=== PATIENT | female | born 2000 | race Caucasian/White ===

== ENCOUNTER 2022-09-05 17:27 | Emergency (ER) | payer MEDICAID ==
[2022-09-05] MEDS ORDERED: Sodium Chloride 0.9% 1000 ML 1,000 ML IV STA ×2 (17:53→19:08)
[2022-09-05] MEDS ORDERED: Zofran 4 MG/2 ML VIAL IV ONE (17:55)
[2022-09-05 18:01] LABS: Absolute Neutrophil Ct (ANC) 8.08 x10^3/uL (1.4-6.9); Basophil (Absolute #) 0.05 x10^3/uL (0-0.4); Eosinophil % 3.1 % (0.00-5.0); Eosinophil (Absolute #) 0.36 x10^3/uL (0-0.5); Hematocrit 41.8 % (35-47); Hemoglobin 13.6 g/dL (12.0-16.0); Lymphocyte (Absolute #) 2.62 x10^3/uL (1.0-4.6); Lymphocytes % 22.5 % (24.0-44.0); Mean Cell Volume 93.5 fL (78-100); Mean Corpuscular Hemoglobin 30.4 pg (26-32); Mean Corpuscular Hgb Concent. 32.5 g/dL (32-36); Mean Platelet Volume 10.9 fL (7.5-11.0); Monocytes % 4.3 % (0.0-12.0); Neutrophil % 69.4 % (36.0-66.0); Platelet Count 316 x10^3/uL (150-450); Red Blood Count 4.47 x10^6/uL (4.1-5.4); Red Cell Distribution Width 11.7 % (11.5-14.0); White Blood Count 11.7 x10^3/uL (4.0-10.5)
[2022-09-05] MEDS ORDERED: Sodium Chloride 0.9% 1000 ML 1,000 ML ONE ×2 (18:08→19:18)
[2022-09-05] MEDS ORDERED: Zofran 4 MG/2 ML VIAL ONE (18:08)
[2022-09-05 18:17] LABS: Appearance CLEAR (CLEAR); Bilirubin NEGATIVE (NEGATIVE); Dipstick done @ ? MAIN LAB; Glucose >=1000 mg/dL (NEGATIVE); Ketones MODERATE-40 (NEGATIVE); Nitrite NEGATIVE (NEGATIVE); Ph 5.5 (5-6); Protein,Urine Dip NEGATIVE (Negative); RBC NEGATIVE Ery/ul (0-5); Specific Gravity 1.015 (1.005-1.025); Urobilinogen 0.2 mg/dL (0-1)
[2022-09-05 18:17] LABS: ALBUMIN 4.6 g/dL (3.5-5.0); ALKALINE PHOSPHATASE 146 U/L (38-126); AMYLASE 48 U/L (30-110); ANION GAP 12.4 MEQ/L (5-15); BLOOD UREA NITROGEN 14 mg/dL (7-17); CHLORIDE 101 mmol/L (98-107); Calcium 8.7 mg/dL (8.4-10.2); Carbon Dioxide 25 mmol/L (22-30); Creatinine 1 0.72 mg/dL (0.52-1.04); EST GLOMERULAR FILTRATION RATE > 60.0 ML/MIN; Glucose 395 mg/dL (74-106); LIPASE 21 U/L (23-300); Potassium 4.3 mmol/L (3.5-5.1); SGOT/AST 29 U/L (14-36); SGPT/ALT 24 U/L (0-35); SODIUM 134 mmol/L (137-145); Total Protein 7.7 g/dL (6.3-8.2)
[2022-09-05 18:21] LABS: Epithelial Cells RARE /HPF (FEW); WBC 0-2 /HPF (0-5)
[2022-09-05 18:25] LABS: Urine Cultured Indicated? NO
--- NOTE | 2022-09-05 18:50 | ERPHSYRPT ---
- History of Present Illness Source: patient Exam Limitations: other (Poor historian) Patient Subjective Stated Complaint: hyperglycemia and NV x 4 hours Triage Nursing Assessment: pt to ED c/o hyperglycemia and NV x 4 hours. reports she took off omnipod and forgot to replace it for 3 hours. when she checked her BS at 1700 it read HI on her monitor. emesis x2. rates abd pain 08/29. ambulatory, A&Ox4, urinated on arrival to ED, playing on phone through assessment. Physician History: 22 yo wf w DM1 presents w N/V x 4 hours w elevated glucose. Pt has had her insulin pump disconnected x 4 hours before coming to the ER. She has chronic, generalized abdominal pain which is mild at present. Pt denies diarrhea/dysuria/hematuria/fever/cough/coryza. She connected her insulin pump when she arrived to the ER. Timing/Duration: hour(s) (4hours) Severity: moderate Modifying Factors: Improves With: nothing Associated Symptoms: denies symptoms, nausea, vomiting, abdominal pain Allergies/Adverse Reactions: No Known Drug Allergies Allergy (Unverified 09/05/22 17:34) Home Medications: Insulin Pump Cart,Cont Inf,Bt [Omnipod Dash Pods (Gen 4)] 1 cartridge .ROUTE UD 09/05/22 [History] Ondansetron ODT 4 MG [Zofran Odt 4 mg] 4 mg PO DAILY PRN PRN 09/05/22 [History] Pnv No.133/Ferrous Fum/Folic [Sv Vitamins Tablet] 1 tab PO DAILY 09/05/22 [History] Hx Tetanus, Diphtheria Vaccination/Date Given: Yes Hx Influenza Vaccination/Date Given: No Immunizations Up to Date: Yes Travel Risk - International Travel Have you traveled outside of the country in past 3 weeks: No - Coronavirus Screening Are you exhibiting any of the following symptoms?: Yes Symptoms: Vomiting/Diarrhea Close contact with a COVID-19 positive Pt in past 14-21 Days: No - Vaccine Status Have you recieved a Covid-19 vaccination: No - Review of Systems Constitutional: No Symptoms Eyes: No Symptoms Ears, Nose, & Throat: No Symptoms Respiratory: No Symptoms Cardiac: No Symptoms Abdominal/Gastrointestinal: No Symptoms, Abdominal Pain, Nausea, Vomiting Genitourinary Symptoms: No Symptoms Musculoskeletal: No Symptoms Skin: No Symptoms Neurological: No Symptoms Psychological: No Symptoms Endocrine: No Symptoms Hematologic/Lymphatic: No Symptoms Immunological/Allergic: No Symptoms - Past Medical History Pertinent Past Medical History: Yes Endocrine Medical History: Diabetes Type I - Past Surgical History Past Surgical History: Yes Genitourinary: Kidney Surgery, Other Other Surgical History: kidney stone removal - Social History Smoking Status: Never smoker Exposure to second hand smoke: No Drug Use: none Patient Lives Alone: No Significant Family History: no pertinent family hx - Female History Hx Last Menstrual Period: 7 years Hx Now: No (unknown) - Nursing Vital Signs Nursing Vital Signs: Initial Vital Signs Temperature 97.9 F 09/05/22 17:40 Pulse Rate 108 H 09/05/22 17:40 Respiratory Rate 18 09/05/22 17:40 Blood Pressure 110/74 09/05/22 17:40 O2 Sat by Pulse Oximetry 97 09/05/22 17:40 Pain Scale Pain Intensity 5 Mildly tachy - Physical Exam General Appearance: no apparent distress Eye Exam: PERRL/EOMI, eyes nml inspection Ears, Nose, Throat Exam: normal ENT inspection, TMs normal, pharynx normal, moist mucous membranes Neck Exam: normal inspection, non-tender, supple, full range of motion, No meningismus, No mass, No Brudzinski, No Kernig's Respiratory Exam: normal breath sounds, lungs clear, airway intact Cardiovascular Exam: tachycardia (Mild), No murmur Gastrointestinal/Abdomen Exam: soft, normal bowel sounds, tenderness (Mild griffin- umbilical TTP wo guarding or rebound) Back Exam: normal inspection, normal range of motion, No CVA tenderness, No vertebral tenderness Extremity Exam: normal inspection, normal range of motion Neurologic Exam: alert, oriented x 3, cooperative, real estate administrative assistant II-XII nml as tested, normal mood/affect, sensation nml Skin Exam: normal color, warm, dry Lymphatic Exam: No adenopathy SpO2 Interpretation: normal SpO2: 98 O2 Delivery: Room Air - Course Nursing assessment & vital signs reviewed: Yes Ordered Tests: Active Orders 24 hr Category Date Time Status IV Insertion STAT Care 09/05/22 17:48 Completed POCT Glucose Check STAT Care 09/05/22 17:48 Completed AMYLASE Stat Lab 09/05/22 17:45 Completed CBC W DIFF Stat Lab 09/05/22 17:45 Completed CMP Stat Lab 09/05/22 17:45 Completed HCG,QUALITATIVE URINE Stat Lab 09/05/22 17:53 Completed LIPASE Stat Lab 09/05/22 17:45 Completed POCT GLUCOSE Stat Lab 09/05/22 17:46 Completed POCT GLUCOSE Stat Lab 09/05/22 19:11 Completed POCT GLUCOSE Stat Lab 09/05/22 20:12 Completed UA W/RFX CULTURE Stat Lab 09/05/22 17:53 Completed Medication Summary Discontinued Medications Generic Name Dose Route Start Last Admin Trade Name Anton PRN Reason Stop Dose Admin Sodium Chloride 1,000 mls @ 999 mls/hr 09/05/22 17:53 09/05/22 19:09 Sodium Chloride 0.9% 1000 Ml IV 09/05/22 18:53 Infused .Q1H1M STA Infusion Sodium Chloride Confirm 09/05/22 18:08 Sodium Chloride 0.9% 1000 Ml Administered 09/05/22 18:09 Dose 1,000 mls @ ud .ROUTE .STK-MED ONE Sodium Chloride 1,000 mls @ 999 mls/hr 09/05/22 19:08 09/05/22 20:20 Sodium Chloride 0.9% 1000 Ml IV 09/05/22 20:08 Infused .Q1H1M STA Infusion Sodium Chloride Confirm 09/05/22 19:18 Sodium Chloride 0.9% 1000 Ml Administered 09/05/22 19:19 Dose 1,000 mls @ ud .ROUTE .STK-MED ONE Insulin Human Lispro 10 unit 09/05/22 19:17 09/05/22 19:20 Insulin Lispro 1 Unit SQ 09/05/22 19:18 10 unit STAT ONE Administration Insulin Human Lispro Confirm 09/05/22 19:18 Insulin Lispro 1 Unit Administered 09/05/22 19:19 Dose 10 unit .ROUTE .STK-MED ONE Ketorolac Tromethamine 15 mg 09/05/22 19:16 09/05/22 19:20 Ketorolac Tromethamine 30 Mg/Ml Inj IV 09/05/22 19:17 15 mg STAT ONE Administration Ketorolac Tromethamine Confirm 09/05/22 19:18 Ketorolac Tromethamine 30 Mg/Ml Inj Administered 09/05/22 19:19 Dose 30 mg .ROUTE .STK-MED ONE Ondansetron HCl 4 mg 09/05/22 17:55 09/05/22 18:09 Ondansetron Hcl 4 Mg/2 Ml Vial IV 09/05/22 17:56 4 mg STAT ONE Administration Ondansetron HCl Confirm 09/05/22 18:08 Ondansetron Hcl 4 Mg/2 Ml Vial Administered 09/05/22 18:09 Dose 4 mg .ROUTE .STK-MED ONE Lab/Rad Data: Laboratory Result Diagrams 09/05/22 17:45 09/05/22 17:45 Laboratory Results 09/05/22 09/05/22 09/05/22 Range/Units 20:12 19:11 17:53 WBC (4.0-10.5) x10^3/uL RBC (4.1-5.4) x10^6/uL Hgb (12.0-16.0) g/dL Hct (35-47) % MCV (78-100) fL MCH (26-32) pg MCHC (32-36) g/dL RDW (11.5-14.0) % Plt Count (150-450) x10^3/uL MPV (7.5-11.0) fL Gran % (36.0-66.0) % Immature Gran % (Auto) (0.00-0.4) % Nucleat RBC Rel Count (0.00-0.1) % Eos # (Auto) (0-0.5) x10^3/uL Immature Gran # (Auto) (0.00-0.03) x10^3u/L Absolute Lymphs (auto) (1.0-4.6) x10^3/uL Absolute Monos (auto) (0.0-1.3) x10^3/uL Absolute Nucleated RBC (0.00-0.01) x10^3u/L Lymphocytes % (24.0-44.0) % Monocytes % (0.0-12.0) % Eosinophils % (0.00-5.0) % Basophils % (0.0-0.4) % Absolute Granulocytes (1.4-6.9) x10^3/uL Basophils # (0-0.4) x10^3/uL Sodium (137-145) mmol/L Potassium (3.5-5.1) mmol/L Chloride (98-107) mmol/L Carbon Dioxide (22-30) mmol/L Anion Gap (5-15) MEQ/L BUN (7-17) mg/dL Creatinine (0.52-1.04) mg/dL Estimated GFR ML/MIN Glucose (74-106) mg/dL POC Glucometer 277 H 341 H (74 to 106) mg/dL Calcium (8.4-10.2) mg/dL Total Bilirubin (0.2-1.3) mg/dL AST (14-36) U/L ALT (0-35) U/L Alkaline Phosphatase (38-126) U/L Serum Total Protein (6.3-8.2) g/dL Albumin (3.5-5.0) g/dL Amylase (30-110) U/L Lipase (23-300) U/L Urinalys Dipstick Clnc MAIN LAB Urine Color YELLOW (YELLOW) Urine Appearance CLEAR (CLEAR) Urine pH 5.5 (5-6) Ur Specific [place] 1.015 (1.005-1.025) POC Urine Protein Conf NEGATIVE (Negative) Urine Ketones MODERATE-40 (NEGATIVE) Urine Nitrite NEGATIVE (NEGATIVE) Urine Bilirubin NEGATIVE (NEGATIVE) Urine Urobilinogen 0.2 (0-1) mg/dL Urine Leukocytes NEGATIVE (NEGATIVE) Urine WBC (Auto) 0-2 (0-5) /HPF Urine RBC (Auto) NONE (0-2) /HPF U Epithel Cells (Auto) RARE (FEW) /HPF Urine Bacteria (Auto) NONE (NEGATIVE) /HPF Urine RBC NEGATIVE (0-5) Jackson/ul Ur Culture Indicated? NO Urine Glucose >=1000 (NEGATIVE) mg/dL Urine HCG, Qual (Negative) 09/05/22 09/05/22 09/05/22 Range/Units 17:53 17:46 17:45 WBC (4.0-10.5) x10^3/uL RBC (4.1-5.4) x10^6/uL Hgb (12.0-16.0) g/dL Hct (35-47) % MCV (78-100) fL MCH (26-32) pg MCHC (32-36) g/dL RDW (11.5-14.0) % Plt Count (150-450) x10^3/uL MPV (7.5-11.0) fL Gran % (36.0-66.0) % Immature Gran % (Auto) (0.00-0.4) % Nucleat RBC Rel Count (0.00-0.1) % Eos # (Auto) (0-0.5) x10^3/uL Immature Gran # (Auto) (0.00-0.03) x10^3u/L Absolute Lymphs (auto) (1.0-4.6) x10^3/uL Absolute Monos (auto) (0.0-1.3) x10^3/uL Absolute Nucleated RBC (0.00-0.01) x10^3u/L Lymphocytes % (24.0-44.0) % Monocytes % (0.0-12.0) % Eosinophils % (0.00-5.0) % Basophils % (0.0-0.4) % Absolute Granulocytes (1.4-6.9) x10^3/uL Basophils # (0-0.4) x10^3/uL Sodium 134 L (137-145) mmol/L Potassium 4.3 (3.5-5.1) mmol/L Chloride 101 (98-107) mmol/L Carbon Dioxide 25 (22-30) mmol/L Anion Gap 12.4 (5-15) MEQ/L BUN 14 (7-17) mg/dL Creatinine 0.72 (0.52-1.04) mg/dL Estimated GFR > 60.0 ML/MIN Glucose 395 H (74-106) mg/dL POC Glucometer 384 H (74 to 106) mg/dL Calcium 8.7 (8.4-10.2) mg/dL Total Bilirubin 0.80 (0.2-1.3) mg/dL AST 29 (14-36) U/L ALT 24 (0-35) U/L Alkaline Phosphatase 146 H (38-126) U/L Serum Total Protein 7.7 (6.3-8.2) g/dL Albumin 4.6 (3.5-5.0) g/dL Amylase 48 (30-110) U/L Lipase 21 L (23-300) U/L Urinalys Dipstick Clnc Urine Color (YELLOW) Urine Appearance (CLEAR) Urine pH (5-6) Ur Specific [place] (1.005-1.025) POC Urine Protein Conf (Negative) Urine Ketones (NEGATIVE) Urine Nitrite (NEGATIVE) Urine Bilirubin (NEGATIVE) Urine Urobilinogen (0-1) mg/dL Urine Leukocytes (NEGATIVE) Urine WBC (Auto) (0-5) /HPF Urine RBC (Auto) (0-2) /HPF U Epithel Cells (Auto) (FEW) /HPF Urine Bacteria (Auto) (NEGATIVE) /HPF Urine RBC (0-5) Jackson/ul Ur Culture Indicated? Urine Glucose (NEGATIVE) mg/dL Urine HCG, Qual NEGATIVE (Negative) 09/05/22 Range/Units 17:45 WBC 11.7 H (4.0-10.5) x10^3/uL RBC 4.47 (4.1-5.4) x10^6/uL Hgb 13.6 (12.0-16.0) g/dL Hct 41.8 (35-47) % MCV 93.5 (78-100) fL MCH 30.4 (26-32) pg MCHC 32.5 (32-36) g/dL RDW 11.7 (11.5-14.0) % Plt Count 316 (150-450) x10^3/uL MPV 10.9 (7.5-11.0) fL Gran % 69.4 H (36.0-66.0) % Immature Gran % (Auto) 0.3 (0.00-0.4) % Nucleat RBC Rel Count 0.0 (0.00-0.1) % Eos # (Auto) 0.36 (0-0.5) x10^3/uL Immature Gran # (Auto) 0.04 H (0.00-0.03) x10^3u/L Absolute Lymphs (auto) 2.62 (1.0-4.6) x10^3/uL Absolute Monos (auto) 0.50 (0.0-1.3) x10^3/uL Absolute Nucleated RBC 0.00 (0.00-0.01) x10^3u/L Lymphocytes % 22.5 L (24.0-44.0) % Monocytes % 4.3 (0.0-12.0) % Eosinophils % 3.1 (0.00-5.0) % Basophils % 0.4 (0.0-0.4) % Absolute Granulocytes 8.08 H (1.4-6.9) x10^3/uL Basophils # 0.05 (0-0.4) x10^3/uL Sodium (137-145) mmol/L Potassium (3.5-5.1) mmol/L Chloride (98-107) mmol/L Carbon Dioxide (22-30) mmol/L Anion Gap (5-15) MEQ/L BUN (7-17) mg/dL Creatinine (0.52-1.04) mg/dL Estimated GFR ML/MIN Glucose (74-106) mg/dL POC Glucometer (74 to 106) mg/dL Calcium (8.4-10.2) mg/dL Total Bilirubin (0.2-1.3) mg/dL AST (14-36) U/L ALT (0-35) U/L Alkaline Phosphatase (38-126) U/L Serum Total Protein (6.3-8.2) g/dL Albumin (3.5-5.0) g/dL Amylase (30-110) U/L Lipase (23-300) U/L Urinalys Dipstick Clnc Urine Color (YELLOW) Urine Appearance (CLEAR) Urine pH (5-6) Ur Specific [place] (1.005-1.025) POC Urine Protein Conf (Negative) Urine Ketones (NEGATIVE) Urine Nitrite (NEGATIVE) Urine Bilirubin (NEGATIVE) Urine Urobilinogen (0-1) mg/dL Urine Leukocytes (NEGATIVE) Urine WBC (Auto) (0-5) /HPF Urine RBC (Auto) (0-2) /HPF U Epithel Cells (Auto) (FEW) /HPF Urine Bacteria (Auto) (NEGATIVE) /HPF Urine RBC (0-5) Jackson/ul Ur Culture Indicated? Urine Glucose (NEGATIVE) mg/dL Urine HCG, Qual (Negative) - Progress Progress: improved Progress Note: 09/05/22 20:19 2L NS bolus 10units sq Humalog 09/05/22 20:20 4mg IV Zofran 15mg IV Toradol 09/05/22 20:21 Pt w hyperglycemia wo anion gap. Much improved after treatment Counseled pt/family regarding: lab results, diagnosis, need for follow-up - Departure Departure Disposition: Home Clinical Impression: Hyperglycemia Condition: Stable Critical Care Time: No Referrals: DESTINY BOWEN [Primary Care Provider] - Follow up/PCP as directed Instructions: High Blood Sugar, Adult (DC) Additional Instructions: Continue with current insulin treatment Follow up with your family MD in AM Return to ER for increasing pain or temperature greater than 100.5
[2022-09-05 19:14] VITALS: BP 124/69
[2022-09-05] MEDS ORDERED: TORAdol 30 mg Injection IV ONE (19:16)
[2022-09-05] MEDS ORDERED: HUMALOG SQ ONE (19:17)
[2022-09-05] MEDS ORDERED: HUMALOG ONE (19:18)
[2022-09-05] MEDS ORDERED: TORAdol 30 mg Injection ONE (19:18)
[2022-09-05 20:14] VITALS: PULSE 84
[2022-09-05 20:22] VITALS: O2SAT 98
== END 2022-09-05 20:29 | disposition home or self-care (01) ==
LOC: ED 17:27
DX: E10.65 Type 1 diabetes mellitus with hyperglycemia (principal); Z79.4 Long term (current) use of insulin; Z96.41 Presence of insulin pump (external) (internal); Z28.310 Unvaccinated for COVID-19
CPT/HCPCS: 36000; 36415; 80053; 81015; 81025; 82150; 82947; 83690; 85025; 96372; 96374; 96375; 99284; J1817; J1885; J2405

== ENCOUNTER 2022-09-12 15:55 | Emergency (ER) | payer MEDICAID ==
--- NOTE | 2022-09-12 15:57 | ERPHSYRPT ---
- History of Present Illness Time Seen by Provider: 09/12/22 15:57 Source: patient Exam Limitations: no limitations Physician History: This is an insulin-dependent diabetic diabetic who was concerned that her blood sugar was low. She did not check her blood sugar but "knows when it is low". Because of the low blood sugar she thought she had patient ate a large amount of ice cream and then presented to the emergency department. Her blood sugar on arrival to emergency department is 189. Patient states she has not been feeling well for the past several days. She did get diabetic scan unit working just while we were evaluating her in the emergency department. Before she could get a value it would take 60 minutes of recalibrating. Patient denies shortness of breath. She denies chest pain. She has no abdominal pain. Timing/Duration: today Severity: mild Associated Symptoms: denies symptoms Allergies/Adverse Reactions: No Known Drug Allergies Allergy (Verified 09/12/22 16:05) Home Medications: Insulin Pump Cart,Cont Inf,Bt [Omnipod Dash Pods (Gen 4)] 1 cartridge .ROUTE UD 09/05/22 [History] Hx Tetanus, Diphtheria Vaccination/Date Given: Yes Hx Influenza Vaccination/Date Given: No Travel Risk - International Travel Have you traveled outside of the country in past 3 weeks: No - Coronavirus Screening Are you exhibiting any of the following symptoms?: Yes Symptoms: Headaches/Body Aches/Fatigue - Vaccine Status Have you recieved a Covid-19 vaccination: No - Review of Systems Constitutional: No Symptoms Eyes: No Symptoms Ears, Nose, & Throat: No Symptoms Respiratory: No Symptoms Cardiac: No Symptoms Abdominal/Gastrointestinal: Nausea Genitourinary Symptoms: No Symptoms Musculoskeletal: No Symptoms Skin: No Symptoms Neurological: Headache Psychological: No Symptoms Endocrine: No Symptoms Hematologic/Lymphatic: No Symptoms Immunological/Allergic: No Symptoms All Other Systems: Reviewed and Negative - Past Medical History Pertinent Past Medical History: Yes Endocrine Medical History: Diabetes Type I - Past Surgical History Past Surgical History: Yes Genitourinary: Kidney Surgery, Other Other Surgical History: kidney stone removal - Social History Smoking Status: Never smoker Exposure to second hand smoke: No Drug Use: none Patient Lives Alone: No Significant Family History: no pertinent family hx - Nursing Vital Signs Nursing Vital Signs: Initial Vital Signs Temperature 97.7 F 09/12/22 16:06 Pulse Rate 92 H 09/12/22 16:06 Respiratory Rate 15 09/12/22 16:06 Blood Pressure 98/74 09/12/22 16:06 O2 Sat by Pulse Oximetry 99 09/12/22 16:06 Pain Scale Pain Intensity 0 - Physical Exam General Appearance: no apparent distress, alert, anxiety Eye Exam: PERRL/EOMI, eyes nml inspection Ears, Nose, Throat Exam: normal ENT inspection, moist mucous membranes Neck Exam: normal inspection, non-tender, supple, full range of motion Respiratory Exam: normal breath sounds, lungs clear, airway intact, No chest tenderness, No respiratory distress Cardiovascular Exam: regular rate/rhythm, normal heart sounds, normal peripheral pulses Gastrointestinal/Abdomen Exam: soft, normal bowel sounds, No tenderness Pelvic Exam: not done Rectal Exam: not done Back Exam: normal inspection, normal range of motion, No CVA tenderness, No vertebral tenderness Extremity Exam: normal inspection, normal range of motion, pelvis stable Neurologic Exam: alert, oriented x 3, cooperative, dramatic teacher II-XII nml as tested, normal mood/affect, nml cerebellar function, nml station & gait, sensation nml Skin Exam: normal color, warm, dry Lymphatic Exam: No adenopathy SpO2 Interpretation: normal O2 Delivery: Room Air - Course Nursing assessment & vital signs reviewed: Yes Ordered Tests: Active Orders 24 hr Category Date Time Status CBC W DIFF Stat Lab 09/12/22 16:35 Completed CMP Stat Lab 09/12/22 16:35 Completed HCG,QUALITATIVE URINE Stat Lab 09/12/22 16:33 Completed POCT GLUCOSE Stat Lab 09/12/22 16:03 Completed UA W/RFX CULTURE Stat Lab 09/12/22 16:33 Completed Urine Triage Profile Stat Lab 09/12/22 16:33 Received Lab/Rad Data: Laboratory Result Diagrams 09/12/22 16:35 09/12/22 16:35 Laboratory Results 09/12/22 09/12/22 09/12/22 Range/Units 17:33 16:35 16:35 WBC 11.2 H (4.0-10.5) x10^3/uL RBC 4.57 (4.1-5.4) x10^6/uL Hgb 14.0 (12.0-16.0) g/dL Hct 43.4 (35-47) % MCV 95.0 (78-100) fL MCH 30.6 (26-32) pg MCHC 32.3 (32-36) g/dL RDW 11.6 (11.5-14.0) % Plt Count 267 (150-450) x10^3/uL MPV 11.0 (7.5-11.0) fL Gran % 79.0 H (36.0-66.0) % Immature Gran % (Auto) 0.4 (0.00-0.4) % Nucleat RBC Rel Count 0.0 (0.00-0.1) % Eos # (Auto) 0.29 (0-0.5) x10^3/uL Immature Gran # (Auto) 0.04 H (0.00-0.03) x10^3u/L Absolute Lymphs (auto) 1.44 (1.0-4.6) x10^3/uL Absolute Monos (auto) 0.54 (0.0-1.3) x10^3/uL Absolute Nucleated RBC 0.00 (0.00-0.01) x10^3u/L Lymphocytes % 12.9 L (24.0-44.0) % Monocytes % 4.8 (0.0-12.0) % Eosinophils % 2.6 (0.00-5.0) % Basophils % 0.3 (0.0-0.4) % Absolute Granulocytes 8.81 H (1.4-6.9) x10^3/uL Basophils # 0.03 (0-0.4) x10^3/uL Sodium 136 L (137-145) mmol/L Potassium 4.3 (3.5-5.1) mmol/L Chloride 105 (98-107) mmol/L Carbon Dioxide 26 (22-30) mmol/L Anion Gap 9.1 (5-15) MEQ/L BUN 14 (7-17) mg/dL Creatinine 0.66 (0.52-1.04) mg/dL Estimated GFR > 60.0 ML/MIN Glucose 239 H (74-106) mg/dL POC Glucometer (74 to 106) mg/dL Calcium 8.7 (8.4-10.2) mg/dL Total Bilirubin 0.60 (0.2-1.3) mg/dL AST 23 (14-36) U/L ALT 18 (0-35) U/L Alkaline Phosphatase 143 H (38-126) U/L Serum Total Protein 7.4 (6.3-8.2) g/dL Albumin 4.3 (3.5-5.0) g/dL Urinalys Dipstick Clnc Urine Color (YELLOW) Urine Appearance (CLEAR) Urine pH (5-6) Ur Specific [place] (1.005-1.025) POC Urine Protein Conf (Negative) Urine Ketones (NEGATIVE) Urine Nitrite (NEGATIVE) Urine Bilirubin (NEGATIVE) Urine Urobilinogen (0-1) mg/dL Urine Leukocytes (NEGATIVE) Urine WBC (Auto) (0-5) /HPF Urine RBC (Auto) (0-2) /HPF U Epithel Cells (Auto) (FEW) /HPF Urine Bacteria (Auto) (NEGATIVE) /HPF Urine RBC (0-5) Jackson/ul Ur Culture Indicated? Urine Glucose (NEGATIVE) mg/dL Urine HCG, Qual (Negative) Influenza Type A Ag NEGATIVE (NEGATIVE) Influenza Type B Ag NEGATIVE (NEGATIVE) RSV (PCR) NEGATIVE (Negative) SARS-CoV-2 (PCR) NEGATIVE (NEGATIVE) 09/12/22 09/12/22 09/12/22 Range/Units 16:33 16:33 16:03 WBC (4.0-10.5) x10^3/uL RBC (4.1-5.4) x10^6/uL Hgb (12.0-16.0) g/dL Hct (35-47) % MCV (78-100) fL MCH (26-32) pg MCHC (32-36) g/dL RDW (11.5-14.0) % Plt Count (150-450) x10^3/uL MPV (7.5-11.0) fL Gran % (36.0-66.0) % Immature Gran % (Auto) (0.00-0.4) % Nucleat RBC Rel Count (0.00-0.1) % Eos # (Auto) (0-0.5) x10^3/uL Immature Gran # (Auto) (0.00-0.03) x10^3u/L Absolute Lymphs (auto) (1.0-4.6) x10^3/uL Absolute Monos (auto) (0.0-1.3) x10^3/uL Absolute Nucleated RBC (0.00-0.01) x10^3u/L Lymphocytes % (24.0-44.0) % Monocytes % (0.0-12.0) % Eosinophils % (0.00-5.0) % Basophils % (0.0-0.4) % Absolute Granulocytes (1.4-6.9) x10^3/uL Basophils # (0-0.4) x10^3/uL Sodium (137-145) mmol/L Potassium (3.5-5.1) mmol/L Chloride (98-107) mmol/L Carbon Dioxide (22-30) mmol/L Anion Gap (5-15) MEQ/L BUN (7-17) mg/dL Creatinine (0.52-1.04) mg/dL Estimated GFR ML/MIN Glucose (74-106) mg/dL POC Glucometer 189 H (74 to 106) mg/dL Calcium (8.4-10.2) mg/dL Total Bilirubin (0.2-1.3) mg/dL AST (14-36) U/L ALT (0-35) U/L Alkaline Phosphatase (38-126) U/L Serum Total Protein (6.3-8.2) g/dL Albumin (3.5-5.0) g/dL Urinalys Dipstick Clnc MAIN LAB Urine Color YELLOW (YELLOW) Urine Appearance CLEAR (CLEAR) Urine pH 6.5 (5-6) Ur Specific [place] 1.020 (1.005-1.025) POC Urine Protein Conf NEGATIVE (Negative) Urine Ketones NEGATIVE (NEGATIVE) Urine Nitrite NEGATIVE (NEGATIVE) Urine Bilirubin NEGATIVE (NEGATIVE) Urine Urobilinogen 0.2 (0-1) mg/dL Urine Leukocytes NEGATIVE (NEGATIVE) Urine WBC (Auto) 0-2 (0-5) /HPF Urine RBC (Auto) NONE (0-2) /HPF U Epithel Cells (Auto) RARE (FEW) /HPF Urine Bacteria (Auto) NONE (NEGATIVE) /HPF Urine RBC NEGATIVE (0-5) Jackson/ul Ur Culture Indicated? NO Urine Glucose >=1000 (NEGATIVE) mg/dL Urine HCG, Qual NEGATIVE (Negative) Influenza Type A Ag (NEGATIVE) Influenza Type B Ag (NEGATIVE) RSV (PCR) (Negative) SARS-CoV-2 (PCR) (NEGATIVE) - Departure Departure Disposition: Home Clinical Impression: Hyperglycemia Condition: Stable Critical Care Time: No Referrals: DESTINY BOWEN [Primary Care Provider] - Follow up/PCP as directed Additional Instructions: Monitor your blood sugar closely. Base your blood sugar treatment on actual values and not what you think they might be. Follow-up with your primary care physician for further evaluation management.
[2022-09-12 16:19] VITALS: BP 98/74
[2022-09-12 16:40] LABS: Absolute Neutrophil Ct (ANC) 8.81 x10^3/uL (1.4-6.9); Basophil (Absolute #) 0.03 x10^3/uL (0-0.4); Eosinophil % 2.6 % (0.00-5.0); Eosinophil (Absolute #) 0.29 x10^3/uL (0-0.5); Hematocrit 43.4 % (35-47); Lymphocyte (Absolute #) 1.44 x10^3/uL (1.0-4.6); Lymphocytes % 12.9 % (24.0-44.0); Mean Corpuscular Hemoglobin 30.6 pg (26-32); Mean Corpuscular Hgb Concent. 32.3 g/dL (32-36); Monocyte (Absolute #) 0.54 x10^3/uL (0.0-1.3); Monocytes % 4.8 % (0.0-12.0); Platelet Count 267 x10^3/uL (150-450); Red Blood Count 4.57 x10^6/uL (4.1-5.4); Red Cell Distribution Width 11.6 % (11.5-14.0); White Blood Count 11.2 x10^3/uL (4.0-10.5)
[2022-09-12 16:54] LABS: Appearance CLEAR (CLEAR); Bilirubin NEGATIVE (NEGATIVE); Dipstick done @ ? MAIN LAB; Glucose >=1000 mg/dL (NEGATIVE); Ketones NEGATIVE (NEGATIVE); Nitrite NEGATIVE (NEGATIVE); Ph 6.5 (5-6); Protein,Urine Dip NEGATIVE (Negative); RBC NEGATIVE Ery/ul (0-5); Urobilinogen 0.2 mg/dL (0-1)
[2022-09-12 16:58] LABS: ALBUMIN 4.3 g/dL (3.5-5.0); ALKALINE PHOSPHATASE 143 U/L (38-126); ANION GAP 9.1 MEQ/L (5-15); BLOOD UREA NITROGEN 14 mg/dL (7-17); CHLORIDE 105 mmol/L (98-107); Calcium 8.7 mg/dL (8.4-10.2); Carbon Dioxide 26 mmol/L (22-30); Creatinine 1 0.66 mg/dL (0.52-1.04); EST GLOMERULAR FILTRATION RATE > 60.0 ML/MIN; Glucose 239 mg/dL (74-106); Potassium 4.3 mmol/L (3.5-5.1); SGOT/AST 23 U/L (14-36); SGPT/ALT 18 U/L (0-35); SODIUM 136 mmol/L (137-145); Total Protein 7.4 g/dL (6.3-8.2)
[2022-09-12 17:16] LABS: Epithelial Cells RARE /HPF (FEW); WBC 0-2 /HPF (0-5)
[2022-09-12 17:20] LABS: Urine Cultured Indicated? NO
[2022-09-12 18:21] LABS: INFLUENZA A NEGATIVE (NEGATIVE); INFLUENZA B NEGATIVE (NEGATIVE); RESPIRATORY SYNCTIAL VIRUS NEGATIVE (Negative); SARS-CoV-2 Xpert Express NEGATIVE (NEGATIVE)
[2022-09-12 19:24] VITALS: PULSE 77; O2SAT 96
[2022-09-12 19:28] LABS: Amphetamine,Urine NEGATIVE (NEGATIVE); Barbiturate,Urine NEGATIVE (NEGATIVE); Benzodiazepine,Urine NEGATIVE (NEGATIVE); Cocaine,Urine NEGATIVE (NEGATIVE); Methadone,Urine NEGATIVE (NEGATIVE); Opiate,Urine NEGATIVE (NEGATIVE); PCP,Urine NEGATIVE (NEGATIVE); THC,Urine NEGATIVE (NEGATIVE)
== END 2022-09-12 19:26 | disposition home or self-care (01) ==
LOC: ED 15:55
DX: E10.65 Type 1 diabetes mellitus with hyperglycemia (principal); Z79.4 Long term (current) use of insulin; Z96.41 Presence of insulin pump (external) (internal); Z28.310 Unvaccinated for COVID-19
CPT/HCPCS: 0241U; 36415; 80053; 80307; 81015; 81025; 82947; 85025; 99282

== ENCOUNTER 2023-03-28 22:32 | Emergency (ER) | payer MEDICAID ==
[2023-03-28 22:42] VITALS: O2SAT 98
--- NOTE | 2023-03-28 22:54 | ERPHSYRPT ---
- History of Present Illness Time Seen by Provider: 03/28/23 22:53 Source: patient Exam Limitations: no limitations Physician History: Patient a 22-year-old female currently history of diabetes presents to our ED with an ingrown toenail. Symptoms have been getting progressively worse over the past week. No trauma. No fever. No nausea vomiting or diaphoresis. Pain is described as an ache that is localized. No radiation. Pain worse with palpation to the involved area. Pain improved with rest. Significant other at bedside. They voiced no other complaints or concerns at this time. Portions of this note were created with voice recognition technology. There may be grammatical, spelling, punctuation or sound alike errors Timing/Duration: week(s) Severity: moderate Modifying Factors: Improves With: nothing Associated Symptoms: denies symptoms Allergies/Adverse Reactions: No Known Drug Allergies Allergy (Verified 03/28/23 23:01) Home Medications: Insulin Pump Cart,Cont Inf,Bt [Omnipod Dash Pods (Gen 4)] 1 cartridge .ROUTE UD 09/05/22 [History] Blood-Glucose Meter,Continuous [Dexcom G6 Systems Tester] 1 each SQ DAILY 03/28/23 [History] Methylphenidate HCl [Jornay Pm] 1 tab PO HS 03/28/23 [History] Hx Tetanus, Diphtheria Vaccination/Date Given: Yes Hx Influenza Vaccination/Date Given: No Hx Pneumococcal Vaccination/Date Given: No Travel Risk - Vaccine Status Have you recieved a Covid-19 vaccination: No - Review of Systems Constitutional: No Symptoms, No Fever, No Chills Eyes: No Symptoms Ears, Nose, & Throat: No Symptoms Respiratory: No Symptoms, No Cough, No Dyspnea Cardiac: No Symptoms, No Chest Pain, No Edema, No Syncope Abdominal/Gastrointestinal: No Symptoms, No Abdominal Pain, No Nausea, No Vomiting, No Diarrhea Genitourinary Symptoms: No Symptoms, No Dysuria Musculoskeletal: No Symptoms, No Back Pain, No Neck Pain Skin: No Symptoms, No Rash Neurological: No Symptoms, No Dizziness, No Focal Weakness, No Sensory Changes Psychological: No Symptoms Endocrine: No Symptoms Hematologic/Lymphatic: No Symptoms Immunological/Allergic: No Symptoms All Other Systems: Reviewed and Negative - Past Medical History Pertinent Past Medical History: Yes Endocrine Medical History: Diabetes Type I - Past Surgical History Past Surgical History: Yes Genitourinary: Kidney Surgery, Other Other Surgical History: kidney stone removal - Social History Smoking Status: Never smoker Exposure to second hand smoke: No Drug Use: none Patient Lives Alone: No Significant Family History: no pertinent family hx - Nursing Vital Signs Nursing Vital Signs: Initial Vital Signs Temperature 97.8 F 03/28/23 22:41 Pulse Rate 114 H 03/28/23 22:41 Respiratory Rate 17 03/28/23 22:41 Blood Pressure 109/64 03/28/23 22:41 O2 Sat by Pulse Oximetry 98 03/28/23 22:41 Pain Scale Pain Intensity 1 - Physical Exam General Appearance: no apparent distress, alert Eye Exam: PERRL/EOMI, eyes nml inspection Ears, Nose, Throat Exam: normal ENT inspection, TMs normal, pharynx normal, moist mucous membranes Neck Exam: normal inspection, non-tender, full range of motion Respiratory Exam: lungs clear, airway intact, No respiratory distress, No accessory muscle use Cardiovascular Exam: regular rate/rhythm, normal peripheral pulses Gastrointestinal/Abdomen Exam: soft, normal bowel sounds, No tenderness, No mass Back Exam: normal inspection, normal range of motion, No CVA tenderness, No vertebral tenderness Extremity Exam: normal inspection, normal range of motion, pelvis stable, tenderness (Poor foot hygiene.), other (Right great toe ingrown toenail particularly at the medial aspect of the right great toe. Localized soft tissue infection/early cellulitis. no lymphangitis. The involved extremity is n eurovascular tact distally. Compartments are soft. Cap refill less than 2 seconds.) Neurologic Exam: alert, oriented x 3, cooperative, normal mood/affect, sensation nml, No motor deficits Skin Exam: normal color, warm, dry, No rash Lymphatic Exam: No adenopathy SpO2 Interpretation: normal SpO2: 98 O2 Delivery: Room Air - Course Nursing assessment & vital signs reviewed: Yes - Progress Progress: improved Progress Note: Procedure note Procedure performed is ingrown toenail excision. Indication for procedure is ingrown toenail with superimposed localized infection. Patient consent obtained. Timeout called. The area was prepped in a standard sterile fashion. Anesthesia was achieved using 1% lidocaine no epinephrine. 4 cc of lidocaine used. A tourniquet was transiently applied for hemostasis after adequate anesthesia achieved. A hemostat was used to invert the embedded ingrown toenail. The toenail was then excised using surgical scissors. Suture was then removed. Patient tolerated procedure well. No intra or postprocedural complications. Patient neurovascular intact distally before and after procedure. A prescription for Keflex was forwarded to patient's pharmacy. A referral to podiatry was also provided as patient is a diabetic and will require close follow-up. Patient agrees to follow-up in the podiatry clinic tomorrow to establish a follow-up appointment. Portions of this note were created with voice recognition technology. There may be grammatical, spelling, punctuation or sound alike errors Complexity of problem addressed is moderate acute complicated with localized infection. No critical care time Complexity of data reviewed and analyzed is none. Diagnosis made based on history and physical. No specialized testing ordered. Risk of complication and or risk of morbidity/mortality of patient management is moderate. A prescription for Keflex forwarded to patient's pharmacy. Patient agrees to follow-up in the orthopedic clinic as discussed. Portions of this note were created with voice recognition technology. There may be grammatical, spelling, punctuation or sound alike errors 03/28/23 23:27 Counseled pt/family regarding: diagnosis, need for follow-up - Departure Departure Disposition: Home Clinical Impression: Ingrown toenail Condition: Stable Critical Care Time: No Referrals: KVNG CASTRO MD [Primary Care Provider] - Follow up/PCP as directed Additional Instructions: Discharge/Care Plan TYLER WEAVER was seen on 03/28/23 in the Emergency Room. The patient was counseled regarding Diagnosis,Lab results, Imaging studies, need for follow up and when to return to the Emergency Room. Prescriptions given: Discharge Note I have spoken with the patient and/or caregivers. I have explained the patient's condition, diagnosis and treatment plan based on the information available to me at this time. I have answered the patient's and/or caregiver's questions and addressed any concerns. The patient and/or caregivers have as good understanding of the patient's diagnosis, condition and treatment plan as can be expected at this point. The vital signs have been stable. The patient's condition is stable and appropriate for discharge from the emergency department. The patient will pursue further outpatient evaluation with the primary care physician or other designated or consulting physician as outlined in the discharge instructions. The patient and/or caregivers are agreeable to this plan of care and follow-up instructions have been explained in detail. The patient and/or caregivers have received these instruction. The patient/and or caregivers are aware that any significant change in condition or worsening of symptoms should prompt an immediate return to this or the closest emergency department or call 911. Prescriptions: Cephalexin Mh 500 mg [Keflex 500 mg] 500 mg PO TID 5 Days #15 cap Outpatient Orders: Ortho Referral Time Frame: 1 Day, Facility: [facility], Location: ORTHO CLINIC
[2023-03-28] MEDS ORDERED: XYLOCAINE 1% HCL 20 ML MDV SUBDERMAL ONE (23:29)
[2023-03-28 23:36] VITALS: BP 114/73; PULSE 94
== END 2023-03-28 23:36 | disposition home or self-care (01) ==
LOC: ED 22:32
DX: L60.0 Ingrowing nail (principal); L03.031 Cellulitis of right toe; E10.9 Type 1 diabetes mellitus without complications; Z33.1 Pregnant state, incidental; Z96.41 Presence of insulin pump (external) (internal); Z79.899 Other long term (current) drug therapy
CPT/HCPCS: 11730; 99281

== ENCOUNTER 2023-10-11 21:57 | Observation (INO) | payer MEDICAID, OTHER ==
[2023-10-11] MEDS ORDERED: Magnesium Sulfate 40 Gm/1000 Ml H2O Premix*** 1,000 ML IV ONE (22:33)
[2023-10-11] MEDS ORDERED: Lactated Ringers 1,000 ML IV ONE ×2 (22:33→22:38)
[2023-10-11 22:54] LABS: Appearance Cloudy (Clear); Bacteria Rare /HPF (None Seen); Bilirubin Negative (Negative); Blood Small (Negative); Epithelial Cells Moderate /HPF (None Seen); Glucose, Urine >=1000 mg/dL (Negative); Hyaline Casts NONE SEEN /LPF (0-2); Ketones 80 (Negative); Leukocyte Esterase Small (Negative); Nitrite Negative (Negative); Ph 6.5 (4.6-8.0); Protein,Urine Dip Negative (Negative); RBC 0-2 /HPF (0-5); Urobilinogen 0.2 mg/dL (0.2); WBC 51-100 /HPF (0-5)
[2023-10-11 22:55] LABS: Hematocrit 32.9 % (35-47); Hemoglobin 10.2 g/dL (12.0-16.0); Mean Cell Volume 88.2 fL (78-100); Mean Corpuscular Hemoglobin 27.3 pg (26-32); Mean Platelet Volume 10.9 fL (7.5-11.0); Platelet Count 279 x10^3/uL (150-450); Red Blood Count 3.73 x10^6/uL (4.1-5.4); Red Cell Distribution Width 14.6 % (11.5-14.0); White Blood Count 15.2 x10^3/uL (4.0-10.5)
[2023-10-11 22:56] LABS: ADD URINE CULTURE? YES (NO)
[2023-10-11 23:00] LABS: Amphetamine,Urine NEGATIVE (NEGATIVE); Barbiturate,Urine NEGATIVE (NEGATIVE); Benzodiazepine,Urine NEGATIVE (NEGATIVE); Cocaine,Urine NEGATIVE (NEGATIVE); Methadone,Urine NEGATIVE (NEGATIVE); Opiate,Urine NEGATIVE (NEGATIVE); PCP,Urine NEGATIVE (NEGATIVE); THC,Urine NEGATIVE (NEGATIVE)
[2023-10-11] MEDS ORDERED: Lactated Ringers 1,000 ML IV SCH (23:00)
[2023-10-11] MEDS ORDERED: Magnesium Sulfate 40 Gm/1000 Ml H2O Premix*** 1,000 ML IV SCH (23:00)
[2023-10-11 23:09] LABS: ALBUMIN 3.5 g/dL (3.5-5.0); ANION GAP 13.9 MEQ/L (5-15); BILIRUBIN,TOTAL 0.6 mg/dL (0.2-1.3); Calcium 8.6 mg/dL (8.4-10.2); Creatinine 1 0.58 mg/dL (0.52-1.04); Potassium 3.7 mmol/L (3.5-5.1); Total Protein 6.8 g/dL (6.3-8.2)
--- NOTE | 2023-10-11 23:11 | PCM.SSS ---
History of Present Illness - Chief Complaint Chief Complaint: OB CHECK History of Present Illness: is a 23 year old female at 33wks A with EDC of 11/29/2023 who has no local physician. She is receiving her OB care in [place] and in [facility] for the holiday. She started having pain in her upper abdomen about 24 hours ago, came to town to visit family a few hours ago and her pains are much more intense, hard to breath through and timeable and painful. She has a history of type 1 diabetes with a an omnipod pump, blood sugars have done well. - Review of Systems Constitutional: No Fever, No Chills Respiratory: No Cough, No Short Of Breath Cardiac: No Chest Pain, No Edema, No Syncope Abdominal/Gastrointestinal: Abdominal Pain, Other (contractions, no vaginal blee ding or leakage of fluid) Skin: No Rash All Other Systems: Reviewed and Negative Medications & Allergies Home Medications: Home Medication List Insulin Pump Cart,Cont Inf,Bt [Omnipod Dash Pods (Gen 4)] 1 cartridge .ROUTE UD 09/05/22 [History Confirmed 10/11/23] Ferrous Sulfate 325 mg [Feosol 325 mg] 650 mg PO DAILY 10/11/23 [History Confirmed 10/11/23] No122/Iron/Folic Acid [ Multi Tablet] 1 tab PO DAILY 10/11/23 [History Confirmed 10/11/23] Allergies/Adverse Reactions: Allergies Allergy/AdvReac Type Severity Reaction Status Date / Time No Known Drug Allergies Allergy Verified 10/11/23 22:12 - Past Medical History Past Medical History: Yes Endocrine Medical History: Diabetes Type I History: Other Comment: blockage in kidney, kidney stones - Past Surgical History Past Surgical History: Yes Genitourinary Surgical Hx: Kidney Surgery, Other Other Surgical History: kidney stone removal - Social History Smoking Status: Never smoker Exposure to second hand smoke: No Alcohol: None Drug Use: none Significant Family History: no pertinent family hx - Physical Exam General Appearance: mild distress Neurologic Exam: alert, oriented x 3 Respiratory Exam: normal breath sounds, lungs clear, No respiratory distress Cardiovascular Exam: regular rate/rhythm, normal heart sounds, normal peripheral pulses Gastrointestinal/Abdomen Exam: soft, normal bowel sounds, other (gravid uterus, SVE 4cm/90%/-1 vertex presentation), No tenderness, No mass Results - Labs Lab/Micro Results: Lab Results-Last 24 Hours 10/11/23 10/11/23 10/11/23 Range/Units 22:36 22:36 22:59 POC Glucometer 162 H (74 to 106) mg/dL Urine Color Yellow (Yellow) Urine Appearance Cloudy A (Clear) Urine pH 6.5 (4.6-8.0) Ur Specific [place] 1.020 (1.005-1.030) Urine Protein Negative (Negative) Urine Glucose (UA) >=1000 A (Negative) mg/dL Urine Ketones 80 A (Negative) Urine Blood Small A (Negative) Urine Nitrite Negative (Negative) Urine Bilirubin Negative (Negative) Urine Urobilinogen 0.2 (0.2) mg/dL Ur Leukocyte Esterase Small A (Negative) U Hyaline Cast (Auto) NONE SEEN (0-2) /LPF Urine Microscopic RBC 0-2 (0-5) /HPF Urine Microscopic WBC 51-100 A (0-5) /HPF Ur Epithelial Cells Moderate A (None Seen) /HPF Urine Bacteria Rare A (None Seen) /HPF Urine Culture Reflexed YES (NO) Urine Opiates Level NEGATIVE (NEGATIVE) Ur Methadone NEGATIVE (NEGATIVE) Urine Barbiturates NEGATIVE (NEGATIVE) Ur Phencyclidine (PCP) NEGATIVE (NEGATIVE) Urine Amphetamine NEGATIVE (NEGATIVE) U Benzodiazepine Level NEGATIVE (NEGATIVE) Urine Cocaine NEGATIVE (NEGATIVE) Urine Marijuana (THC) NEGATIVE (NEGATIVE) Assessment/Plan (1) labor in third trimester Current Visit: Yes Status: Acute Assessment & Plan: I spoke with Dr Lexie STEWART at [facility] and OB hospitalist Dr Cesar Sesay, they agree with my decision to bolus LR and mag sulfate 4g bolus, then will run at 2g/hr. will not give celestone after discussion due to her type 1 diabetes. they agree to accept patient via emergency transfer via [facility] ambulance for NICU availability and labor with high risk with type 1 diabetes. Code(s): O60.03 - LABOR WITHOUT DELIVERY, THIRD TRIMESTER (2) Type 1 diabetes mellitus Current Visit: Yes Status: Acute Hospital Summary - Lab Lab Results-Last 24 Hrs: Lab Results-Last 24 Hours 10/11/23 10/11/23 10/11/23 Range/Units 22:36 22:36 22:59 POC Glucometer 162 H (74 to 106) mg/dL Urine Color Yellow (Yellow) Urine Appearance Cloudy A (Clear) Urine pH 6.5 (4.6-8.0) Ur Specific [place] 1.020 (1.005-1.030) Urine Protein Negative (Negative) Urine Glucose (UA) >=1000 A (Negative) mg/dL Urine Ketones 80 A (Negative) Urine Blood Small A (Negative) Urine Nitrite Negative (Negative) Urine Bilirubin Negative (Negative) Urine Urobilinogen 0.2 (0.2) mg/dL Ur Leukocyte Esterase Small A (Negative) U Hyaline Cast (Auto) NONE SEEN (0-2) /LPF Urine Microscopic RBC 0-2 (0-5) /HPF Urine Microscopic WBC 51-100 A (0-5) /HPF Ur Epithelial Cells Moderate A (None Seen) /HPF Urine Bacteria Rare A (None Seen) /HPF Urine Culture Reflexed YES (NO) Urine Opiates Level NEGATIVE (NEGATIVE) Ur Methadone NEGATIVE (NEGATIVE) Urine Barbiturates NEGATIVE (NEGATIVE) Ur Phencyclidine (PCP) NEGATIVE (NEGATIVE) Urine Amphetamine NEGATIVE (NEGATIVE) U Benzodiazepine Level NEGATIVE (NEGATIVE) Urine Cocaine NEGATIVE (NEGATIVE) Urine Marijuana (THC) NEGATIVE (NEGATIVE) - Discharge Disposition: DC TO [facility] Condition: Stable Prescriptions: No Action Insulin Pump Cart,Cont Inf,Bt [Omnipod Dash Pods (Gen 4)] 1 cartridge .ROUTE UD No122/Iron/Folic Acid [ Multi Tablet] 1 tab PO DAILY Ferrous Sulfate 325 mg [Feosol 325 mg] 650 mg PO DAILY Additional Instructions: Dr Cesar Sesay accepting physician at [facility] via transfer center call with [place] Follow up with: Provider,Unknown [Primary Care Provider] -
[2023-10-11 23:12] LABS: INR 0.88 (0.8-3.0); PROTIME 9.7 SECONDS (9.4-12.5); PTT 24.5 SECONDS (25.1-36.5)
[2023-10-11 23:43] VITALS: RESP 16; O2SAT 98
[2023-10-11 23:46] VITALS: BP 121/64; PULSE 104
[2023-10-12 01:23] VITALS: TEMP 97
== END 2023-10-11 23:40 | disposition home or self-care (01) ==
LOC: OB 21:57
PROVIDERS: ADMIT Family Medicine; ATTEND Family Medicine
DX: Z34.03 Encounter for supervision of normal first pregnancy, third trimester (principal); Z3A.33 33 weeks gestation of pregnancy; E10.8 Type 1 diabetes mellitus with unspecified complications
CPT/HCPCS: 36415; 80053; 80307; 81001; 82947; 83735; 85027; 85610; 85730; 87086; G0379

== ENCOUNTER 2023-11-23 20:44 | Emergency (ER) | payer OTHER ==
[2023-11-23 22:06] VITALS: TEMP 97.6
--- NOTE | 2023-11-23 22:06 | ERPHSYRPT ---
- History of Present Illness Time Seen by Provider: 11/23/23 22:06 Source: patient Exam Limitations: no limitations Physician History: This is a 23-year-old diabetic white female patient of Dr. Pacheco who presents with low blood sugar readings since 2:00 this morning on 11/23/2023. Patient has a new insulin pump that she has had for 2 months. Since 2 AM, her blood sugars have been consistently in the 40s to 60s range. Patient states she has been eating and drinking making sure to take enough sugar in. Despite this oral intake, her blood sugar remains in this range. The Accu-Chek performed on arrival to the emergency department 57. Patient is certain she has turned her insulin pump off. She did not call the manufacture. She did not call her primary care provider. Patient has no chest pain. She has no shortness of breath. She has had right upper molar, wisdom teeth pain for several months. Timing/Duration: today Severity: mild (To moderate) Associated Symptoms: weakness, No shortness of breath, No chest pain Allergies/Adverse Reactions: No Known Drug Allergies Allergy (Verified 10/11/23 22:12) Home Medications: Insulin Pump Cart,Cont Inf,Bt [Omnipod Dash Pods (Gen 4)] 1 cartridge .ROUTE UD 09/05/22 [History] Hx Tetanus, Diphtheria Vaccination/Date Given: Yes Hx Influenza Vaccination/Date Given: No Hx Pneumococcal Vaccination/Date Given: No Travel Risk - International Travel Have you traveled outside of the country in past 3 weeks: No - Coronavirus Screening Are you exhibiting any of the following symptoms?: No Close contact with a COVID-19 positive Pt in past 14-21 Days: No - Vaccine Status Have you recieved a Covid-19 vaccination: No - Review of Systems Constitutional: Weakness (Mild generalized) Eyes: No Symptoms Ears, Nose, & Throat: No Symptoms Respiratory: No Symptoms Cardiac: No Symptoms Abdominal/Gastrointestinal: No Symptoms Genitourinary Symptoms: No Symptoms Musculoskeletal: No Symptoms Skin: No Symptoms Neurological: No Symptoms Psychological: No Symptoms Endocrine: No Symptoms Hematologic/Lymphatic: No Symptoms Immunological/Allergic: No Symptoms All Other Systems: Reviewed and Negative - Past Medical History Pertinent Past Medical History: Yes Endocrine Medical History: Diabetes Type I History: Other Other Medical History: blockage in kidney, kidney stones - Past Surgical History Past Surgical History: Yes Genitourinary: Kidney Surgery, Other Other Surgical History: kidney stone removal - Social History Smoking Status: Never smoker Exposure to second hand smoke: No Drug Use: none Patient Lives Alone: No Significant Family History: no pertinent family hx - Nursing Vital Signs Nursing Vital Signs: Initial Vital Signs Temperature 97.6 F 11/23/23 22:05 Pulse Rate 71 11/23/23 22:05 Respiratory Rate 20 11/23/23 22:05 Blood Pressure 101/68 11/23/23 22:05 O2 Sat by Pulse Oximetry 97 11/23/23 22:05 Pain Scale Pain Intensity 10 - Physical Exam General Appearance: no apparent distress, alert, anxiety Eye Exam: PERRL/EOMI, eyes nml inspection Ears, Nose, Throat Exam: normal ENT inspection, moist mucous membranes, other (Complains of right upper molar/wisdom teeth pain. I do not appreciate an abscess or sign of infection) Neck Exam: normal inspection, non-tender, supple, full range of motion Respiratory Exam: normal breath sounds, lungs clear, airway intact, No chest tenderness, No respiratory distress Cardiovascular Exam: regular rate/rhythm, normal heart sounds, normal peripheral pulses Gastrointestinal/Abdomen Exam: soft, normal bowel sounds, No tenderness Pelvic Exam: not done Rectal Exam: not done Back Exam: normal inspection, normal range of motion, No CVA tenderness, No vertebral tenderness Extremity Exam: normal inspection, normal range of motion, pelvis stable Neurologic Exam: alert, oriented x 3, cooperative, 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 nml as tested, normal mood/affect, nml cerebellar function, nml station & gait, sensation nml Skin Exam: normal color, warm, dry Lymphatic Exam: No adenopathy SpO2 Interpretation: normal O2 Delivery: Room Air - Course Nursing assessment & vital signs reviewed: Yes Ordered Tests: Active Orders 24 hr Category Date Time Status IV Insertion STAT Care 11/23/23 23:00 Active CBC W DIFF Stat Lab 11/23/23 22:58 Completed CMP Stat Lab 11/23/23 22:58 Completed CULTURE,URINE Stat Lab 11/23/23 22:58 Received MAG [MAGNESIUM] Stat Lab 11/23/23 22:58 Completed POCT GLUCOSE Stat Lab 11/23/23 22:02 Completed POCT GLUCOSE Stat Lab 11/23/23 23:52 Completed UA W/RFX UR CULTURE Stat Lab 11/23/23 22:58 Completed Medication Summary Generic Name Dose Route Start Last Admin Trade Name Anton PRN Reason Stop Dose Admin Sodium Chloride 1,000 mls @ 100 mls/hr 11/23/23 22:30 11/23/23 23:01 Sodium Chloride 0.9% 1000 Ml IV 12/23/23 22:29 100 mls/hr .Q10H DAVID Administration Ceftriaxone Sodium/Dextrose 1 g in 50 mls @ 100 mls/hr 11/23/23 23:52 11/24/23 00:04 Rocephin 1 Gm-D5w 50 Ml Bag IV 11/24/23 00:21 100 mls/hr STAT STA 100 mls/hr Administration Discontinued Medications Generic Name Dose Route Start Last Admin Trade Name Freq PRN Reason Stop Dose Admin Dextrose 50 ml 11/23/23 22:30 11/23/23 23:01 Dextrose 50%-Water 50 Ml Abboject IV 11/23/23 22:31 50 ml STAT ONE Administration Dextrose Confirm 11/23/23 22:46 Dextrose 50%-Water 50 Ml Abboject Administered 11/23/23 22:47 Dose 50 ml IV .STK-MED ONE Dextrose 50 ml 11/23/23 23:54 11/23/23 23:57 Dextrose 50%-Water 50 Ml Vial IV 11/23/23 23:55 Not Given STAT ONE Ceftriaxone Sodium/Dextrose Confirm 11/24/23 00:00 Rocephin 1 Gm-D5w 50 Ml Bag Administered 11/24/23 00:01 Dose 1 g in 50 mls @ ud IV .STK-MED ONE Ibuprofen 600 mg 11/23/23 22:57 11/23/23 23:19 Ibuprofen 600 Mg Tablet PO 11/23/23 22:58 600 mg STAT ONE Administration Ibuprofen Confirm 11/23/23 23:16 Ibuprofen 600 Mg Tablet Administered 11/23/23 23:17 Dose 600 mg .ROUTE .STK-MED ONE Oxycodone/Acetaminophen 1 tab 11/23/23 22:57 11/23/23 23:19 Oxycodone Hcl/Apap 5 Mg/325 Mg Tablet PO 11/23/23 22:58 1 tab STAT STA Administration Oxycodone/Acetaminophen Confirm 11/23/23 23:16 Oxycodone Hcl/Apap 5 Mg/325 Mg Tablet Administered 11/23/23 23:17 Dose 1 tab .ROUTE .STK-MED ONE Potassium Chloride 20 meq 11/23/23 23:53 11/24/23 00:04 Potassium Chloride Tab 10 Meq Tab PO 11/23/23 23:54 20 meq STAT ONE Administration Potassium Chloride Confirm 11/24/23 00:00 Potassium Chloride Tab 10 Meq Tab Administered 11/24/23 00:01 Dose 20 meq PO .STK-MED ONE Lab/Rad Data: Laboratory Result Diagrams 11/23/23 22:58 11/23/23 22:58 Laboratory Results 11/23/23 11/23/23 11/23/23 Range/Units 23:52 22:58 22:58 WBC (4.0-10.5) x10^3/uL RBC (4.1-5.4) x10^6/uL Hgb (12.0-16.0) g/dL Hct (35-47) % MCV (78-100) fL MCH (26-32) pg MCHC (32-36) g/dL RDW (11.5-14.0) % Plt Count (150-450) x10^3/uL MPV (7.5-11.0) fL Gran % (36.0-66.0) % Immature Gran % (Auto) (0.00-0.4) % Nucleat RBC Rel Count (0.00-0.1) % Eos # (Auto) (0-0.5) x10^3/uL Immature Gran # (Auto) (0.00-0.03) x10^3u/L Absolute Lymphs (auto) (1.0-4.6) x10^3/uL Absolute Monos (auto) (0.0-1.3) x10^3/uL Absolute Nucleated RBC (0.00-0.01) x10^3u/L Lymphocytes % (24.0-44.0) % Monocytes % (0.0-12.0) % Eosinophils % (0.00-5.0) % Basophils % (0.0-0.4) % Absolute Granulocytes (1.4-6.9) x10^3/uL Basophils # (0-0.4) x10^3/uL Sodium 140 (137-145) mmol/L Potassium 3.3 L (3.5-5.1) mmol/L Chloride 106 (98-107) mmol/L Carbon Dioxide 24 (22-30) mmol/L Anion Gap 13.2 (5-15) MEQ/L BUN 3 L (7-17) mg/dL Creatinine 0.68 (0.52-1.04) mg/dL Estimated GFR 127.0 ML/MIN Glucose 51 L (74-106) mg/dL POC Glucometer 170 H (74 to 106) mg/dL Calcium 9.0 (8.4-10.2) mg/dL Magnesium 1.9 (1.6-2.3) mg/dL Total Bilirubin 0.30 (0.2-1.3) mg/dL AST 27 (14-36) U/L ALT 15 (0-35) U/L Alkaline Phosphatase 89 (38-126) U/L Serum Total Protein 7.4 (6.3-8.2) g/dL Albumin 4.1 (3.5-5.0) g/dL Urine Color (Yellow) Urine Appearance (Clear) Urine pH (4.6-8.0) Ur Specific [place] (1.005-1.030) Urine Protein (Negative) Urine Glucose (UA) (Negative) mg/dL Urine Ketones (Negative) Urine Blood (Negative) Urine Nitrite (Negative) Urine Bilirubin (Negative) Urine Urobilinogen (0.2) mg/dL Ur Leukocyte Esterase (Negative) U Hyaline Cast (Auto) (0-2) /LPF Urine Microscopic RBC (0-5) /HPF Urine Microscopic WBC (0-5) /HPF Ur Epithelial Cells (None Seen) /HPF Urine Bacteria (None Seen) /HPF Urine Culture Reflexed (NO) 11/23/23 11/23/23 11/23/23 Range/Units 22:58 22:58 22:02 WBC 5.6 (4.0-10.5) x10^3/uL RBC 4.22 (4.1-5.4) x10^6/uL Hgb 11.0 L (12.0-16.0) g/dL Hct 35.9 (35-47) % MCV 85.1 (78-100) fL MCH 26.1 (26-32) pg MCHC 30.6 L (32-36) g/dL RDW 14.1 H (11.5-14.0) % Plt Count 295 (150-450) x10^3/uL MPV 11.0 (7.5-11.0) fL Gran % 63.3 (36.0-66.0) % Immature Gran % (Auto) 0.5 H (0.00-0.4) % Nucleat RBC Rel Count 0.0 (0.00-0.1) % Eos # (Auto) 0.03 (0-0.5) x10^3/uL Immature Gran # (Auto) 0.03 (0.00-0.03) x10^3u/L Absolute Lymphs (auto) 1.63 (1.0-4.6) x10^3/uL Absolute Monos (auto) 0.36 (0.0-1.3) x10^3/uL Absolute Nucleated RBC 0.00 (0.00-0.01) x10^3u/L Lymphocytes % 29.1 (24.0-44.0) % Monocytes % 6.4 (0.0-12.0) % Eosinophils % 0.5 (0.00-5.0) % Basophils % 0.2 (0.0-0.4) % Absolute Granulocytes 3.54 (1.4-6.9) x10^3/uL Basophils # 0.01 (0-0.4) x10^3/uL Sodium (137-145) mmol/L Potassium (3.5-5.1) mmol/L Chloride (98-107) mmol/L Carbon Dioxide (22-30) mmol/L Anion Gap (5-15) MEQ/L BUN (7-17) mg/dL Creatinine (0.52-1.04) mg/dL Estimated GFR ML/MIN Glucose (74-106) mg/dL POC Glucometer 57 L (74 to 106) mg/dL Calcium (8.4-10.2) mg/dL Magnesium (1.6-2.3) mg/dL Total Bilirubin (0.2-1.3) mg/dL AST (14-36) U/L ALT (0-35) U/L Alkaline Phosphatase (38-126) U/L Serum Total Protein (6.3-8.2) g/dL Albumin (3.5-5.0) g/dL Urine Color Yellow (Yellow) Urine Appearance Clear (Clear) Urine pH 6.5 (4.6-8.0) Ur Specific [place] 1.015 (1.005-1.030) Urine Protein Trace A (Negative) Urine Glucose (UA) Negative (Negative) mg/dL Urine Ketones Negative (Negative) Urine Blood Negative (Negative) Urine Nitrite Negative (Negative) Urine Bilirubin Negative (Negative) Urine Urobilinogen 0.2 (0.2) mg/dL Ur Leukocyte Esterase Moderate A (Negative) U Hyaline Cast (Auto) NONE SEEN (0-2) /LPF Urine Microscopic RBC 0-2 (0-5) /HPF Urine Microscopic WBC 11-20 A (0-5) /HPF Ur Epithelial Cells Few (None Seen) /HPF Urine Bacteria Rare A (None Seen) /HPF Urine Culture Reflexed YES (NO) - Progress Progress: improved Progress Note: 11/23/23 23:06 This patient's medical issue is 1 of moderate complexity. Level complexity in the workup performed is based on review of the patient's past medical history, review the patient's medication list, review the patient's drug allergy list, history present illness and physical findings on examination. Workup in this patient includes placement of an intravenous line, infusion of normal saline solution, infusion of dextrose, CBC, CMP, urinalysis, magnesium level. 11/24/23 00:12 I interpreted the patient's laboratory data results. Patient has a urinary tract infection. She has slightly low potassium level. We will send a prescription to her pharmacy for 1 weeks worth of antibiotics. Patient was told to make sure she follows up with the manufacture of the new insulin pump to help troubleshoot this. Patient was also told to keep the insulin pump off until she gets these issues resolved. She can use short acting insulin and monitor her blood sugar often. In addition, she needs to make sure she is drinking and eating adequate amount of carbohydrates. She is to call her primary care provider today, 11/24/2023 for further instructions and management. Counseled pt/family regarding: lab results, diagnosis, need for follow-up Medical Desision Making - Independent Historian Additional History obtained from: Spouse - Diagnostic Testing Diagnostic test were ordered, analyzed, and reviewed by me: Yes - Risk of complications The pt has a mod risk of morbidity or mortality based on: Need for prescription drug management - Departure Departure Disposition: Home Clinical Impression: Hypoglycemia, Hypokalemia, UTI (urinary tract infection), Pain, dental Condition: Stable Critical Care Time: No Referrals: KVNG CASTRO MD [Primary Care Provider] - Follow up/PCP as directed Additional Instructions: Call your primary care provider later today. Call the dentist later today, 11/24/2023 to make an appointment for further evaluation management including dental pain control. Stop all long-acting insulin medication. Monitor your blood sugar closely and often. Take your antibiotics as prescribed. Call the insulin pump emergency room clinician later today, 11/24/2023 to troubleshoot your pump. Prescriptions: Ciprofloxacin [Cipro 500 MG] 500 mg PO BID #14 tablet
[2023-11-23] MEDS ORDERED: Sodium Chloride 0.9% 1000 ML 1,000 ML IV SCH (22:30)
[2023-11-23] MEDS ORDERED: D50W 50 ml Abboject IV ONE ×2 (22:30→22:46)
[2023-11-23] MEDS ORDERED: Sodium Chloride 0.9% 1000 ML 1,000 ML ONE (22:46)
[2023-11-23] MEDS ORDERED: MOTRIN 600 MG PO ONE (22:57)
[2023-11-23] MEDS ORDERED: PERCOCET TABLET 5/325MG PO STA (22:57)
[2023-11-23 23:05] LABS: Absolute Neutrophil Ct (ANC) 3.54 x10^3/uL (1.4-6.9); BASOPHIL % 0.2 % (0.0-0.4); Basophil (Absolute #) 0.01 x10^3/uL (0-0.4); Eosinophil % 0.5 % (0.00-5.0); Eosinophil (Absolute #) 0.03 x10^3/uL (0-0.5); Hematocrit 35.9 % (35-47); IMMATURE GRAN # 0.03 x10^3u/L (0.00-0.03); IMMATURE GRAN % 0.5 % (0.00-0.4); Lymphocyte (Absolute #) 1.63 x10^3/uL (1.0-4.6); Lymphocytes % 29.1 % (24.0-44.0); Mean Cell Volume 85.1 fL (78-100); Mean Corpuscular Hemoglobin 26.1 pg (26-32); Mean Corpuscular Hgb Concent. 30.6 g/dL (32-36); Monocyte (Absolute #) 0.36 x10^3/uL (0.0-1.3); Monocytes % 6.4 % (0.0-12.0); Neutrophil % 63.3 % (36.0-66.0); Platelet Count 295 x10^3/uL (150-450); Red Blood Count 4.22 x10^6/uL (4.1-5.4); Red Cell Distribution Width 14.1 % (11.5-14.0); White Blood Count 5.6 x10^3/uL (4.0-10.5)
[2023-11-23] MEDS ORDERED: PERCOCET TABLET 5/325MG ONE (23:16)
[2023-11-23] MEDS ORDERED: MOTRIN 600 MG ONE (23:16)
[2023-11-23 23:20] LABS: ALBUMIN 4.1 g/dL (3.5-5.0); ANION GAP 13.2 MEQ/L (5-15); BILIRUBIN,TOTAL 0.3 mg/dL (0.2-1.3); Creatinine 1 0.68 mg/dL (0.52-1.04); Potassium 3.3 mmol/L (3.5-5.1); Total Protein 7.4 g/dL (6.3-8.2)
[2023-11-23 23:22] LABS: Appearance Clear (Clear); Bacteria Rare /HPF (None Seen); Bilirubin Negative (Negative); Blood Negative (Negative); Epithelial Cells Few /HPF (None Seen); Glucose, Urine Negative (Negative); Hyaline Casts NONE SEEN /LPF (0-2); Ketones Negative (Negative); Leukocyte Esterase Moderate (Negative); Nitrite Negative (Negative); Ph 6.5 (4.6-8.0); Protein,Urine Dip Trace (Negative); RBC 0-2 /HPF (0-5); Specific Gravity 1.015 (1.005-1.030); Urobilinogen 0.2 mg/dL (0.2)
[2023-11-23 23:26] LABS: ADD URINE CULTURE? YES (NO)
[2023-11-23] MEDS ORDERED: ROCEPHIN 1 Gm-D5w 50 ml Bag** 1 G/50 ML IVPB IV STA (23:52)
[2023-11-23] MEDS ORDERED: Klor Con PO ONE (23:53)
[2023-11-23] MEDS ORDERED: D50W 50ML Vial IV ONE (23:54)
[2023-11-24] MEDS ORDERED: ROCEPHIN 1 Gm-D5w 50 ml Bag** 1 G/50 ML IVPB IV ONE
[2023-11-24] MEDS ORDERED: Klor Con PO ONE
[2023-11-24 01:04] VITALS: BP 104/72; PULSE 76; RESP 20; O2SAT 98
== END 2023-11-24 01:25 | disposition home or self-care (01) ==
LOC: ED 20:44
DX: E10.649 Type 1 diabetes mellitus with hypoglycemia without coma (principal); E87.6 Hypokalemia; N39.0 Urinary tract infection, site not specified; K08.89 Other specified disorders of teeth and supporting structures; Z79.4 Long term (current) use of insulin; Z96.41 Presence of insulin pump (external) (internal); Z28.310 Unvaccinated for COVID-19
CPT/HCPCS: 36000; 36415; 80053; 81001; 82947; 83735; 85025; 87086; 96374; 99284; J0696; A9270-GY